=== PATIENT | female | born 1980 | race Caucasian/White ===

== ENCOUNTER 2024-07-12 14:36 | Inpatient (IN) ==
[2024-07-12] MEDS ORDERED: Prochlorperazine 5 mg/ml 2 ml VIAL (10 mg) IV PRN (14:54)
[2024-07-12] MEDS ORDERED: Nalbuphine 10 MG/ML 1 ML VIAL IV PRN (14:54)
[2024-07-12] MEDS ORDERED: Lidocaine 1% VIAL 10 MG/ML 30 ML VIAL INJ PRN (14:54)
[2024-07-12] MEDS ORDERED: Ondansetron 4 mg VIAL 2 MG/ML 2 ml VIAL IV PRN (15:27)
[2024-07-12] MEDS: Lactated Ringers 1000 ml BAG 1,000 ML IV SCH ×2 (16:41→18:50)
[2024-07-12] MEDS: Oxytocin in LR 20,000 MILLI.UNIT/1,000 ML BAG IV SCH ×2 (16:41→22:51)
[2024-07-12 17:12] LABS: ABS Eosinophils 0.1 10^3/uL (0.0-0.5); ABS Lymphocytes 1.2 10^3/uL (1.0-4.8); ABS Monocytes 0.6 10^3/uL (0.0-0.9); ABS Neutrophils 6.6 10^3/uL (1.5-7.6); ABS Nucleated RBC 0.01 10^3/ul; Eosinophil % 0.8 %; Hematocrit 37.4 % (35-45); Hemoglobin 12.7 g/dL (11.5-14.3); Lymphocyte % 14.5 %; Mean Corpuscular Hemoglobin 30.6 pg (27-33); Mean Corpuscular Hgb Conc 33.9 g/dL (31-36); Mean Corpuscular Volume 90.3 fL (80-97); Mean Platelet Volume 9.9 fL (7.5-11.2); Nucleated Red Blood Cells % 0.1 %/100WBC (0.0-0.8); Platelet Count 154 10^3/uL (150-450); Red Blood Count 4.14 10^6/uL (3.63-4.92); Red Cell Distribution Width 14.1 % (12-17); White Blood Count 8.5 10^3/uL (3.8-11.8)
[2024-07-12 17:32] LABS: Urine Benzodiazepine Screen None Detected (None Detect); Urine Cannabinoids Screen None Detected (None Detect); Urine Opiates Screen None Detected (None Detect)
[2024-07-12] MEDS: OBEPIDURAL (200 ML) 200 ML EPIDURAL SCH (18:02)
[2024-07-12] MEDS ORDERED: Phenylephrine 40 mcg/mL 10mL (400mcg) SYRINGE IV PUSH PRN ×2 (18:34)
[2024-07-12] MEDS ORDERED: Sodium Citrate/Citric Acid LIQ 15 ML UDC PO PRN (18:34)
[2024-07-12] MEDS: Buffered Lidocaine 1% SYRIN 1 ml INTRADERM ONE (18:48)
[2024-07-12] MEDS: OBEPIDURAL (200 ML) 200 ML EPIDURAL ONE (18:49)
[2024-07-12] MEDS: Lactated Ringers 1000 ml BAG 1,000 ML IV ONE ×2 (18:49→20:42)
[2024-07-12] MEDS: Lidocaine 1.5% EPI 1:200,000 30 ML SDV ONE (20:43)
[2024-07-12] MEDS ORDERED: Glycerin ADULT 2.4 gm SUPP PR PRN (23:14)
[2024-07-12] MEDS: Tranexamic Acid 1 GM/100ML BAG 0 MG/0 ML BAG IV ONE (23:30)
[2024-07-12] MEDS: Phenylephrine 40 mcg/mL 10mL (400mcg) SYRINGE ONE (23:30)
[2024-07-12] MEDS ORDERED: Lactated Ringers 1000 ml BAG 1,000 ML IV SCH (23:45)
[2024-07-13] MEDS: Witch Hazel PAD JAR TOPICAL PRN (00:08)
[2024-07-13] MEDS: Dibucaine 1% OINT 28.35 GM TUBE PR PRN (00:08)
[2024-07-13 06:20] LABS: ABS Eosinophils 0.1 10^3/uL (0.0-0.5); ABS Lymphocytes 1.6 10^3/uL (1.0-4.8); ABS Monocytes 0.9 10^3/uL (0.0-0.9); ABS Neutrophils 16.2 10^3/uL (1.5-7.6); ABS Nucleated RBC 0.03 10^3/ul; Eosinophil % 0.3 %; Hematocrit 35.8 % (35-45); Hemoglobin 12.3 g/dL (11.5-14.3); Lymphocyte % 8.4 %; Mean Corpuscular Hemoglobin 30.8 pg (27-33); Mean Corpuscular Hgb Conc 34.3 g/dL (31-36); Mean Corpuscular Volume 89.7 fL (80-97); Mean Platelet Volume 9.6 fL (7.5-11.2); Nucleated Red Blood Cells % 0.2 %/100WBC (0.0-0.8); Platelet Count 131 10^3/uL (150-450); Red Blood Count 3.99 10^6/uL (3.63-4.92); Red Cell Distribution Width 14.1 % (12-17); White Blood Count 18.7 10^3/uL (3.8-11.8)
[2024-07-14 08:24] VITALS: BP 123/79
[2024-07-14 21:22] LABS: Syphilis IgG Screen Nonreactive
== END 2024-07-14 09:53 | disposition home or self-care (01) | DRG 807 ==
LOC: MCHOBOUT 14:36 → MCHOB 14:47
PROVIDERS: ADMIT Obstetrics & Gynecology; ATTEND Obstetrics & Gynecology